=== PATIENT | female | born 1990 | race Caucasian/White ===

== ENCOUNTER 2021-04-24 07:08 | Outpatient (REF) | payer BC, SELFPAY ==
--- NOTE | ~2021-04-24 | XR_ITS ---
EXAMINATION: XR CERVICAL SPINE CLINICAL INFORMATION: Neck pain COMPARISON: None TECHNIQUE: 3 views of the cervical spine were obtained. FINDINGS: There is mild curvature of the lower cervical and upper thoracic spine to the left and visualized mid thoracic spine to the right. Bone alignment is otherwise normal. No fracture or dislocation is seen. There is evidence of mild degenerative spondylosis and degenerative disc disease from C3-C4 to C6-C7. Prevertebral soft tissues are normal. XR/XR cervical spine 2V IMPRESSION: Mild curvature of the cervicothoracic spine and degenerative changes.
== END 2021-04-24 07:09 | disposition home or self-care (01) ==
LOC: HO.XRAY 07:08
PROVIDERS: PCP Internal Medicine; Visit Provider Internal Medicine
DX: M54.2 Cervicalgia (principal)
CPT/HCPCS: 72040

== ENCOUNTER 2021-05-25 06:58 | Outpatient (REF) | payer BC, SELFPAY ==
[2021-05-25 07:17] LABS: MANUAL DIFF FLAG NO
[2021-05-25 07:39] LABS: Basophils Percent Auto 0.4 % (0-2); Eosinophils Absolute Auto 0.1 X10*3/uL (0.0-0.4); Eosinophils Percent Auto 1.7 % (0-4); Hematocrit 40.9 % (37.0-47.0); Hemoglobin 13.3 g/dl (12.0-16.0); Imm Gran Abs Auto 0.01 X10*3/uL (0.00-0.03); Imm Gran Pct Auto 0.2 % (0.0-0.4); Lymphocytes Absolute Auto 2.1 X10*3/uL (1.2-4.9); Lymphocytes Percent Auto 44.4 % (20-40); Mean Corpuscular HGB Conc 32.5 g/dl (31.0-35.0); Mean Corpuscular Volume 92.3 fL (80.0-98.0); Mean Platelet Volume 10.1 fL (9.4-12.3); Monocytes Absolute Auto 0.2 X10*3/uL (0.1-1.2); Monocytes Percent Auto 5.2 % (2-11); Neutrophils Absolute Auto 2.2 x10*3/uL (2.0-8.3); Neutrophils Percent Auto 48.1 % (45-73); Platelet Count 195 X10*3/uL (160-400); Red Blood Count 4.43 X10*6/uL (4.20-5.50); Red Cell Distribution Width 13.2 % (11.0-16.0); White Blood Count 4.7 X10*3/uL (4.8-10.8)
[2021-05-25 07:56] LABS: Alanine Aminotransferase 16 U/L (0-31); Albumin Level 3.9 g/dL (3.5-5.0); Alkaline Phosphatase 52 U/L (39-117); Anion Gap 10 (12-20); Aspartate Amino Transferase 16 U/L (5-31); Bilirubin Total 1.2 mg/dL (0.0-1.0); Blood Urea Nitrogen 14 mg/dL (9-16); C Reactive Protein 0.06 mg/dL (< or = 0.50); Calcium 9.3 mg/dL (8.4-10.2); Carbon Dioxide 27 mmol/L (22-29); Chloride 107 mmol/L (96-108); Estimated Glomerular Filt Rate > 60; Glucose Random 93 mg/dL (60-115); Potassium 4.7 mmol/L (3.3-5.1); Sodium 139 mmol/L (135-145); Total Protein 6.7 g/dL (6.5-8.0)
[2021-05-25 08:21] LABS: Free T4 (Free Thyroxine) 0.97 ng/dL (0.71-1.85); Thyroid Stimulating Hormone 1.38 uIU/mL (0.32-4.0); Vitamin D 25-OH Total 18.7 ng/mL (>30)
[2021-05-25 08:37] LABS: Erythrocyte Sedimentation Rate 4 MM/HR (0-20)
[2021-05-25 09:08] LABS: Folate 12.2 ng/mL (> or = 4.0); Vitamin B12 345 pg/mL (200-900)
== END 2021-05-25 06:59 | disposition home or self-care (01) ==
LOC: HO.LAB 06:58
PROVIDERS: PCP Internal Medicine; Visit Provider Internal Medicine
DX: R51.9 Headache, unspecified (principal)
CPT/HCPCS: 36415; 80053; 82306; 82607; 82746; 84439; 84443; 85025; 85652; 86140

== ENCOUNTER 2021-08-27 07:00 | Outpatient (RCR) | payer BC, SELFPAY ==
--- NOTE | 2021-05-21 10:26 | MHC.PT.EP ---
[facility] [place] Office [place] Office [place] Office [address] Adrian Lie [address] [phone] F: [phone] F: [phone] F: [phone] F: [phone] Physical Therapy Plan of Care Date of Evaluation: Date of Surgery: NA Diagnosis: CERVICALGIA Assessment: Pt IS 31 YO LHD F REFERRED TO PT FROM DR HUERTAS WITH CERVICALGIA. Pt REPORTS PAIN STARTED INSIDIOUSLY IN NECK IN SEPTEMBER. TOOK TIME FOR PCP APPT. XRAY +mild degenerative spondylosis and degenerative disc disease from C3-C4 to C6-C7 WITH mild curvature of the lower cervical and upper thoracic spine to the left and visualized mid thoracic spine to the right . 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 PRESENTS WITH OVERACTIVE UT MMS, FWD HEAD POSTURE, DECREASED UPPER BODY STRENGTH, HIGH CERVICAL PAIN, TIGHT PECS. SHOULD BENEFIT FROM PT TO ADDRESS THESE ISSUES Frequency and Duration: The patient will be seen 2X/WK X 6 WKS Short Term Goals: 1. INCREASED POSTURE AWARENESS AND AWARENESS NECK CARE 2. I HEP WITH DC EX PLAN 3. LESS HENDRICKS Detention Goals: 1. DECREASED NECK PAIN AT LEAST 50% WITH ADLS 2. IMPROVED NPDI ( SOC) Treatment Plan: Modalities to reduce pain, spasms and effusion. Manual therapy to restore motion and function. Therapeutic exercise to improve strength and flexibility. Neuromuscular re-education for posture and balance. Therapeutic activities to return to functional activities of daily living. Electronically signed by: NORBERTO WELLS PT Please sign and return to therapist. Thank you for your referral.
--- NOTE | 2021-09-01 07:48 | MHC.PT.DC ---
[facility] [place] Office [place] Office [place] Office [address] Adrian Lei [address] [phone] F: [phone] F: [phone] F: [phone] F: [phone] Physical Therapy Discharge Report Diagnosis: CERVICALGIA Date of Surgery: NA Date of Evaluation: 05/21/21 Date of Discharge: 09/01/21 Treatments to Date: 13 Cancellations to Date: No Shows to Date: Discharge Status: Achieved Goals Improved Function Independent with HEP Discharge Summary: PER LAST PT NOTE ON 08/27/21 PER STEWART NAJERA PT,DPT. Pt has attended 13 visits since start of care in May 21, 2021 demonstrating improvement/ reduction in headaches, shoulder/and periscap sx. Pt has been issued a written HEP expressing positive response to care. Pt expressing no neck/shoulder pain at this time and is ready to transition to I HEP. Has been using 3# free-weights and GTB for HEP, we discussed goal of progressing reps prior to advancement of heavier weights and bands.' Electronically signed by: NORBERTO WELLS PT Please sign and return to therapist. Thank you for your referral.
== END 2021-09-01 07:49 | disposition home or self-care (01) ==
LOC: HO.PTWFD 07:00
PROVIDERS: PCP Internal Medicine; Visit Provider Internal Medicine
DX: M54.2 Cervicalgia (principal)
CPT/HCPCS: 97110; 97140; 97161; 97535

== ENCOUNTER 2022-02-08 16:31 | Outpatient (REF) | payer BC, SELFPAY ==
[2022-02-08 17:31] LABS: Appearance Urine Clear; Color Urine Yellow; Glucose Urine UA Negative (Negative); Leukocyte Esterase Urine Negative (Negative); Nitrite Urine Negative (Negative); Specific Gravity - Urine 1.025 (1.005-1.025); Urine Blood Negative (Negative); Urine Ketones Trace mg/dL (Negative); Urine Protein Negative (Neg-Trace)
[2022-02-08 17:34] LABS: Bacteria Urine None Seen (None Seen); Hyaline Casts Urine 0-2 /LPF (0-2); RBC Urine 0-2 /HPF (0-2); WBC Urine 0-5 /HPF (0-5)
== END 2022-02-08 16:32 | disposition home or self-care (01) ==
LOC: HO.LAB 16:31
PROVIDERS: PCP Internal Medicine; Visit Provider Internal Medicine
DX: R30.0 Dysuria (principal)
CPT/HCPCS: 81001

== ENCOUNTER 2022-07-23 07:08 | Outpatient (REF) | payer BC, SELFPAY ==
[2022-07-23 07:27] LABS: MANUAL DIFF FLAG NO
[2022-07-23 07:38] LABS: Basophils Percent Auto 0.9 % (0-2); Eosinophils Absolute Auto 0.1 X10*3/uL (0.0-0.4); Eosinophils Percent Auto 2.9 % (0-4); Hematocrit 38.8 % (37.0-47.0); Hemoglobin 12.9 g/dl (12.0-16.0); Lymphocytes Absolute Auto 2.4 X10*3/uL (1.2-4.9); Lymphocytes Percent Auto 51.8 % (20-40); Mean Corpuscular HGB Conc 33.2 g/dl (31.0-35.0); Mean Corpuscular Hemoglobin 30.6 pg (27.0-33.0); Mean Corpuscular Volume 91.9 fL (80.0-98.0); Mean Platelet Volume 9.4 fL (9.4-12.3); Monocytes Absolute Auto 0.3 X10*3/uL (0.1-1.2); Monocytes Percent Auto 5.9 % (2-11); Neutrophils Absolute Auto 1.8 x10*3/uL (2.0-8.3); Neutrophils Percent Auto 38.5 % (45-73); Platelet Count 214 X10*3/uL (160-400); Red Blood Count 4.22 X10*6/uL (4.20-5.50); White Blood Count 4.5 X10*3/uL (4.8-10.8)
[2022-07-23 08:27] LABS: Alanine Aminotransferase 9 U/L (0-31); Alkaline Phosphatase 51 U/L (39-117); Anion Gap 10 (12-20); Aspartate Amino Transferase 13 U/L (5-31); Bilirubin Total 0.8 mg/dL (0.0-1.0); Blood Urea Nitrogen 11 mg/dL (9-16); Calcium 9.2 mg/dL (8.4-10.2); Carbon Dioxide 26 mmol/L (22-29); Chloride 107 mmol/L (96-108); Cholesterol 166 mg/dL; Estimated Glomerular Filt Rate > 60; Glucose Random 98 mg/dL (60-115); HDL Cholesterol 62 mg/dL; LDL Cholesterol Calculated 98 mg/dl; Potassium 4.1 mmol/L (3.3-5.1); Sodium 139 mmol/L (135-145); Total Protein 6.7 g/dL (6.5-8.0); Triglycerides 33 mg/dL
[2022-07-23 08:46] LABS: Thyroid Stimulating Hormone 1.08 uIU/mL (0.32-4.0); Vitamin D 25-OH Total 32.2 ng/mL (>30)
[2022-07-23 08:55] LABS: Folate 11.1 ng/mL (> or = 4.0); Vitamin B12 520 pg/mL (200-900)
== END 2022-07-23 07:09 | disposition home or self-care (01) ==
LOC: HO.LAB 07:08
PROVIDERS: PCP Internal Medicine; Visit Provider Internal Medicine
DX: F41.1 Generalized anxiety disorder (principal); E78.00 Pure hypercholesterolemia, unspecified; E55.9 Vitamin D deficiency, unspecified
CPT/HCPCS: 36415; 80053; 80061; 82306; 82607; 82746; 84439; 84443; 85025

== ENCOUNTER 2023-08-15 16:35 | Outpatient (AMB) | payer BC, SELFPAY ==
[2023-08-15 16:40] VITALS: BP 104/60; O2SAT 99; BMI 27.9
--- NOTE | 2023-08-15 16:40 | A.OFFPC_ITS ---
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: Not Required per policy Accompanied by: Self / Same As Patient Allergies No Known Allergies Allergy (Verified 08/15/23 16:41) Medication List - Last Reconciled 08/15/23 by Tina Pennington MD levonorgestrel (Mirena) intrauterine Tobacco use date assessed: 08/15/23 Dental Screening Dental Screen Date: 08/15/23 Did you have a dental visit in the last 12 months?: Yes Did you have a dental problem in the last 6 months where you did not have access to dental care?: No Was dental information given to patient?: Patient has dentist HPI PE 2 HPI0 Details 33-year-old overweight female(9 lb weigh t gain) coming in for physical exam last seen in July 2022 for physical exam having neck pain. Patient also has generalized anxiety disorder. Review of the notes had Pap smear done by Dr. Andres Herron 08/16/2022 [facility] Family History (Updated 07/25/22 @ 17:26 by Briana Weldon [facility]) Paternal Grandmother Lung cancer Paternal Grandfather Colon cancer Sister Migraine Mother Anxiety and depression Social History (Updated 08/15/23 @ 17:12 by Tina Pennington MD) Housing: House Alcohol intake: current Comment: once a week < 1 drink Patient Tobacco Use Status: Never used Tobacco e-Cigarette/Vaping Use: Never Used Second Hand Smoke Exposure: No Current occupational status: employed Cognitive needs: No Hearing needs: No Vision needs: No Questionnaire PHQ-9 Over the last 2 weeks, how often have you been bothered by any of the following problems? 1. Little interest or pleasure in doing things: not at all 2. Feeling down, depressed, or hopeless: not at all 3. Trouble falling or staying asleep, or sleeping too much: not at all 4. Feeling tired or having little energy: not at all 5. Poor appetite or overeating: not at all 6. Feeling bad about yourself - or that you are a failure or have let yourself or your family down: not at all 7. Trouble concentrating on things, such as reading the newspaper or watching television: not at all 8. Moving or speaking so slowly that other people could have noticed. Or the opposite - being so fidgety or restless that you have been moving around a lot more than usual: not at all 9. Thoughts that you would be better off or of hurting yourself in some way: not at all Total score: 0 Depression Screening Interpretation: Negative Depression Screening Done: Yes Source: Developed by Drs. Mike Aponte, Martine Lopez, Virgil Swanson and colleagues, with an educational anish from [employer]. Thrive Questionnaire Date Thrive assessed: 08/15/23 I am a: Patient What is your living situation today?: I have a steady place to live Within the past 12 months, did the food you bought not last and you didn't have the money to get more?: Never true Within the past 12 months, did you worry whether your food would run out before you got money to buy more?: Never true Do you have trouble paying for medicines?: No Do you have trouble getting transportation to medical appointments?: No Do you have trouble paying your heating and electricity bill?: No Do you have trouble taking care of your child, family member or friend?: No Do you have trouble with day-to-day activities such as bathing, preparing meals, shopping, managing finances, etc.?: No Are you currently unemployed and looking for a job?: No Are you interested in more education?: No Please select the resources that you would like help with: None THRIVE Score: 0 AUDIT C Alcohol Use Questionnaire (AUDIT-C) 1. How often do you have a drink containing alcohol?: 2-4 times a month 2. How many drinks containing alcohol do you have on a typical day when you are drinking?: 1 or 2 3. How often do you have six or more drinks on one occasion?: Never Total Score: 2 CRISTY-7 AMB Questionnaire CRISTY-7 Date CRISTY - 7 assessed: 08/15/23 Feeling nervous, anxious, or on edge: 0 = Not at all Not being able to stop or control worryin = Not at all Worrying too much about different things: 0 = Not at all Trouble relaxin = Not at all Being so restless that it is hard to sit still: 0 = Not at all Becoming easily annoyed or irritable: 0 = Not at all Feeling afraid as if something awful might happen: 0 = Not at all Total CRISTY-7 score (0-4 normal; 5-9 mild; 10-14 moderate; 15-21 severe): 0 Source: Developed by Drs. Mike Aponte, Martine Lopez, Virgil Swanson and colleagues, with an educational anish from [employer]. Review of Systems Const Denies poor appetite and Denies weakness Eyes Denies no additional complaints ENT Reports Normal hearing present, Denies dizziness, Denies nasal congestion, Denies tinnitus and Denies sore throat Card Denies chest pain, Denies syncope, Denies rapid heart rate and Denies dyspnea Resp Denies cough and Denies dyspnea GI Denies change in stool character, Reports constipation, Denies diarrhea, Denies nausea and Denies vomiting Denies urinary frequency, Denies difficulty voiding and Denies dysuria Neuro Reports Normal hearing present, Denies confusion, Denies dizziness, Denies syncope and Denies weakness Psych Denies confusion Physical exam (Primary Care) Vital Signs: Last Vital Signs BP 104/60 08/15/23 16:40 Pulse Ox 99 08/15/23 16:40 Oxygen Delivery Method Room Air 08/15/23 16:40 BMI result Body Mass Index 27.9 Tobacco/Smoking Status: Tobacco use Status Tobacco use date assessed 08/15/23 08/15/23 16:42 Patient Tobacco Use Status Never used Tobacco 08/15/23 16:42 Tobacco use type 04/24/21 07:07 e-Cigarette/Vaping Use Never Used 08/15/23 16:42 PHQ-9: PHQ-9 Score PHQ-9: Total score 0 08/15/23 16:42 Depression Screening Interpretation: Negative Thrive Assessment: Date of Thrive Assessment Date Thrive assessed 08/15/23 08/15/23 16:42 Const General: No confusion Orientation/consciousness: No confusion HENMT Head: Yes normocephalic Ears: external ears normal and TM's normal bilaterally Face and sinus: Yes normal facial exam Mouth: moist mucous membranes Throat: Yes tonsils normal Eyes Conjunctivae: conjunctivae normal Pupils: Equal, round and reactive pupils present and Pupil accommodation reflex normal Direct Ophthalmoscopy: normal light reflex Neck Neck: No lymphadenopathy Thyroid: Thyroid normal Chest Chest palpation & inspection: normal inspection of the chest Resp Effort & Inspection: normal respiratory effort and no audible wheezes Auscultation: clear to auscultation bilaterally, no crackles, no wheezes and lung sounds not diminished Cardio Rate: regular rate Rhythm: regular rhythm Peripheral pulses: radial pulses present and dorsalis pedis present GI Palpation (GI): no masses Auscultation: normal bowel sounds and normoactive bowel sounds Rectal Exam - Female: deferred Skin General skin exam: no rashes or lesions noted Rashes: no rashes Neuro General: No confusion Cranial nerves: Yes Equal, round and reactive pupils present and Yes Normal hearing present Cognition (Neuro): normal cognition Gait exam (Neuro): Normal gait present Motor exam (neuro): 5/5 motor strength present throughout Deep tendon reflexes (DTR's): Right brachioradialis reflex intensity grade: 2+, Left brachioradialis reflex intensity grade: 2+, Right patellar reflex intensity grade: 2+ and Left patellar reflex intensity grade: 2+ Extrem General: No edema Shoulder/upper arm images: 2 1. brown mole 5 mm Assessment and Plan Assessment & Plan (1) Annual physical exam: Code(s): Z00.00 - Encounter for general adult medical examination without abnormal findings Plan: Patient is advised to eat healthy, keep well hydrated, keep active and have adequate sleep. (2) Neck pain: Code(s): M54.2 - Cervicalgia (3) Generalized anxiety disorder: Code(s): F41.1 - Generalized anxiety disorder (4) Overweight (BMI 25.0-29.9): Code(s): E66.3 - Overweight Plan: Diet and exercise Coding Level of Care Code Est Pt Prev Care 18-39y(18790) Diagnoses Annual physical exam Z00.00 Neck pain M54.2 Generalized anxiety disorder F41.1 Overweight (BMI 25.0-29.9) E66.3
== END 2023-08-15 17:28 | disposition home or self-care (01) ==
PROVIDERS: PCP Internal Medicine; Visit Provider Internal Medicine
DX: Z00.00 Encounter for general adult medical examination without abnormal findings (principal); M54.2 Cervicalgia; F41.1 Generalized anxiety disorder; E66.3 Overweight
CPT/HCPCS: 99395

== ENCOUNTER 2024-08-26 17:15 | Outpatient (AMB) | payer BC, SELFPAY ==
[2024-08-26 17:18] VITALS: BP 104/62; PULSE 75; O2SAT 98; BMI 34.2
--- NOTE | 2024-08-26 17:18 | MHC.PC.OV ---
Vital Signs 08/26/24 17:18 Height 5 ft Weight 175 lb BMI 34.2 BP 104/62 Blood Pressure Location Lt brachial Position Sitting Pulse 75 Pulse Source Pulse Oximeter Pulse Oximetry (%) 98 Oxygen Delivery Method Room Air Intake Visit Reasons: physical Allergies No Known Allergies Allergy (Verified 08/26/24 17:18) Medication List - Last Reconciled 08/26/24 by Tina Pennington MD aspirin 81 mg PO DAILY docosahexaenoic acid ( DHA) mg PO Tobacco use date assessed: 08/26/24 Dental Screening Dental Screen Date: 08/26/24 Did you have a dental visit in the last 12 months?: Yes Did you have a dental problem in the last 6 months where you did not have access to dental care?: No Was dental information given to patient?: Patient has dentist HPI physical HPI Details LMP 31 weeks EDC October 26, 2024 [facility]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 [facility] Family History (Updated 07/25/22 @ 17:26 by Briana Weldon [facility]) Paternal Grandmother Lung cancer Paternal Grandfather Colon cancer Sister Migraine Mother Anxiety and depression Social History (Updated 08/26/24 @ 17:46 by Tina Pennington MD) Housing: House Alcohol intake: current Comment: once a week < 1 drink- stopped as 08/2024 Patient Tobacco Use Status: Never used Tobacco Tobacco use type: Cigarette e-Cigarette/Vaping Use: Never Used Second Hand Smoke Exposure: No Current occupational status: employed Cognitive needs: No Hearing needs: No Vision needs: No Questionnaire PHQ-9 Over the last 2 weeks, how often have you been bothered by any of the following problems? 1. Little interest or pleasure in doing things: not at all 2. Feeling down, depressed, or hopeless: not at all 3. Trouble falling or staying asleep, or sleeping too much: not at all 4. Feeling tired or having little energy: not at all 5. Poor appetite or overeating: not at all 6. Feeling bad about yourself - or that you are a failure or have let yourself or your family down: not at all 7. Trouble concentrating on things, such as reading the newspaper or watching television: not at all 8. Moving or speaking so slowly that other people could have noticed. Or the opposite - being so fidgety or restless that you have been moving around a lot more than usual: not at all 9. Thoughts that you would be better off or of hurting yourself in some way: not at all Total score: 0 Depression Screening Interpretation: Negative Depression Screening Done: Yes Source: Developed by Drs. Mike Aponte, Martine Lopez, Virgil Swanson and colleagues, with an educational anish from [email or web address]. Thrive Questionnaire Date Thrive assessed: 08/23/24 I am a: Patient What is your living situation today?: I have a steady place to live Within the past 12 months, did the food you bought not last and you didn't have the money to get more?: Never true Within the past 12 months, did you worry whether your food would run out before you got money to buy more?: Never true Do you have trouble paying for medicines?: No Do you have trouble getting transportation to medical appointments?: No Do you have trouble paying your heating and electricity bill?: No Do you have trouble taking care of your child, family member or friend?: No Do you have trouble with day-to-day activities such as bathing, preparing meals, shopping, managing finances, etc.?: No Are you currently unemployed and looking for a job?: No Are you interested in more education?: No Please select the resources that you would like help with: None Currently or been in a relationship where the following occur: No concerns reported THRIVE Score: 0 AUDIT C Alcohol Use Questionnaire (AUDIT-C) 1. How often do you have a drink containing alcohol?: Never 3. How often do you have six or more drinks on one occasion?: Never Total Score: 0 CRISTY-7 AMB Questionnaire CRISTY-7 Date CRISTY - 7 assessed: 08/15/23 Feeling nervous, anxious, or on edge: 0 = Not at all Not being able to stop or control worryin = Not at all Worrying too much about different things: 1 = Several days Trouble relaxin = Not at all Being so restless that it is hard to sit still: 0 = Not at all Becoming easily annoyed or irritable: 0 = Not at all Feeling afraid as if something awful might happen: 0 = Not at all Total CRISTY-7 score (0-4 normal; 5-9 mild; 10-14 moderate; 15-21 severe): 1 Source: Developed by Drs. Mike Aponte, Martine oLpez, Virgil Swanson and colleagues, with an educational anish from [email or web address]. Review of Systems Const Denies poor appetite and Denies weakness Eyes Denies no additional complaints ENT Reports Normal hearing present, Denies dizziness, Denies nasal congestion, Denies tinnitus and Denies sore throat Card Denies chest pain, Denies syncope, Denies rapid heart rate and Denies dyspnea Resp Denies cough and Denies dyspnea GI Denies change in stool character, Reports constipation, Denies diarrhea, Denies nausea and Denies vomiting Denies urinary frequency, Denies difficulty voiding and Denies dysuria Neuro Reports Normal hearing present, Denies confusion, Denies dizziness, Denies syncope and Denies weakness Psych Denies confusion Physical exam (Primary Care) Vital Signs: Last Vital Signs Pulse 75 08/26/24 17:18 BP 104/62 08/26/24 17:18 Pulse Ox 98 08/26/24 17:18 Oxygen Delivery Method Room Air 08/26/24 17:18 BMI result Body Mass Index 34.2 Tobacco/Smoking Status: Tobacco use Status Tobacco use date assessed 08/26/24 08/26/24 17:23 Patient Tobacco Use Status Never used Tobacco 08/26/24 17:23 Tobacco use type Cigarette 08/26/24 17:23 e-Cigarette/Vaping Use Never Used 08/26/24 17:23 PHQ-9: PHQ-9 Score PHQ-9: Total score 0 08/26/24 17:23 Depression Screening Interpretation: Negative Thrive Assessment: Date of Thrive Assessment Date Thrive assessed 08/23/24 08/26/24 17:23 Currently or been in a relationship where the following occur: No concerns reported Const General: No confusion Orientation/consciousness: No confusion HENMT Head: Yes normocephalic Ears: external ears normal and TM's normal bilaterally Face and sinus: Yes normal facial exam Mouth: moist mucous membranes Throat: Yes tonsils normal Eyes Conjunctivae: conjunctivae normal Pupils: Equal, round and reactive pupils present and Pupil accommodation reflex normal Direct Ophthalmoscopy: normal light reflex Neck Neck: No lymphadenopathy Thyroid: Thyroid normal Chest Chest palpation & inspection: normal inspection of the chest Resp Effort & Inspection: normal respiratory effort and no audible wheezes Auscultation: clear to auscultation bilaterally, no crackles, no wheezes and lung sounds not diminished Cardio Rate: regular rate Rhythm: regular rhythm Peripheral pulses: radial pulses present and dorsalis pedis present GI Other: Abdomen is enlarged to 30 week Skin General skin exam: no rashes or lesions noted Rashes: no rashes Neuro General: No confusion Cranial nerves: Yes Equal, round and reactive pupils present and Yes Normal hearing present Cognition (Neuro): normal cognition Gait exam (Neuro): Normal gait present Motor exam (neuro): 5/5 motor strength present throughout Deep tendon reflexes (DTR's): Right brachioradialis reflex intensity grade: 2+, Left brachioradialis reflex intensity grade: 2+, Right patellar reflex intensity grade: 2+ and Left patellar reflex intensity grade: 2+ Extrem General: No edema Coding Level of Care Code Est Pt Prev Care 18-39y(23160) Diagnoses Annual physical exam Z00.00 with 31 completed weeks gestation Z3A.31 Assessment & Plan Assessment & Plan (1) Annual physical exam: Code(s): Z00.00 - Encounter for general adult medical examination without abnormal findings Category: Medical Plan: Patient is advised to eat healthy, keep well hydrated, keep active and have adequate sleep. (2) with 31 completed weeks gestation: Code(s): Z3A.31 - 31 weeks gestation of Category: Medical Plan: Patient follows up with [facility] obstetrics and gynecology Plan History of Present Illness The patient is a 34-year-old female presenting for a physical examination and management of generalized anxiety disorder. The patient has a history of generalized anxiety disorder, which has been a concern during previous visits. She reports feeling anxious about various aspects of her life, although specific triggers were not discussed in detail during this visit. The patient is also managing obesity, with a noted weight gain of 30 pounds since her last visit. A wellness plan focusing on diet and exercise has been discussed to address this issue. Health Maintenance - Diet and exercise plan discussed for weight management Social History Review of Systems - Psychiatric: Reports anxiety about various aspects of life. Physical Exam Results Plan Continue to follow-up with gynecology. And congratulations!!! Patient was informed and verbally consented to the use of an ambient scribe for clinic note documentation during this visit. Discussion Notes Patient Instructions - Follow the recommended diet and exercise plan to manage weight.
== END 2024-08-26 17:51 | disposition home or self-care (01) ==
LOC: HO.HMCH 17:16
PROVIDERS: PCP Internal Medicine; Visit Provider Internal Medicine
DX: Z00.00 Encounter for general adult medical examination without abnormal findings (principal); Z3A.31 31 weeks gestation of pregnancy